=== PATIENT | male | born 2005 | race Caucasian/White ===

== ENCOUNTER 2025-05-22 13:42 | Emergency (ER) | payer BC, SELFPAY ==
[2025-05-22 13:44] VITALS: BP 143/68; PULSE 81; RESP 18; TEMP 36.6; O2SAT 100
--- NOTE | 2025-05-22 17:48 | ED.ANIMALBIT ---
HPI - Animal Bite General Chief Complaint: Animal Bite <TEJA Lipscomb Last Filed: 05/22/25 18:55> Stated Complaint: Dog bite left arm <TEJA Lipscomb Last Filed: 05/22/25 18:55> Time Seen by Provider: 05/22/25 17:02 <TEJA Lipscomb Last Filed: 05/22/25 18:55> Source: patient <TEJA Lipscomb Last Filed: 05/22/25 18:55> Mode of arrival: ambulatory <TEJA Lipscomb Last Filed: 05/22/25 18:55> Limitations: no limitations <TEJA Lipscomb Last Filed: 05/22/25 18:55> History of Present Illness HPI narrative: Patient is a 20-year-old male who presents the ED with report a dog bite to his left upper arm. Patient reports he was outside walking today around 1:30 p.m. when a dog walking on a leash attacked him and bit him in his L upper posterior arm. Sustained laceration to his left distal posterior upper arm. Reports there is a piece of material coming out from the laceration. Reports decreased sensation throughout the L dorsal forearm. Denies significant decreased ROM. Denies fevers. Tetanus is up-to-date. Believes the dog's vaccines are up-to-date. States it was not acting abnormally. <TEJA Lipscomb Last Filed: 05/22/25 18:55> Related Data Allergies/Adverse Reactions: Allergies Allergy/AdvReac Type Severity Reaction Status Date / Time No Known Allergies Allergy Verified 05/22/25 18:03 <TEJA Lipscomb Last Filed: 05/22/25 18:55> Review of Systems Review of Systems: All systems reviewed & are unremarkable except as noted in HPI. <TEJA Lipscomb Last Filed: 05/22/25 18:55> All systems reviewed & are unremarkable except as noted in HPI and below <TEJA Lipscomb Last Filed: 10/30/25 18:55> Exam Narrative: GENERAL: Well appearing, well-nourished, non-toxic, in no acute distress. HEAD: Normocephalic, atraumatic. RESPIRATORY: Airway patent, respirations nonlabored. CARDIOVASCULAR: Regular rate and rhythm without murmurs, rubs, or gallops. Radial pulses strong and intact. MUSCULOSKELETAL: 1 cm lateral laceration to left posterior upper arm, just proximal from elbow joint. No active bleeding. There is approximately 10 cm piece of thin/slightly shiny material hanging out from the laceration, TTP and increased bleeding with manipulation of this material. Focal surrounding TTP with bruising. Small abrasions to lateral posterior mid upper arm w/o active bleeding or laceration. Decreased sharp touch sensation over dorsal aspect of left forearm. Range of motion is intact throughout left fingers, wrist, elbow flexion/extension. SKIN: Warm, dry, normal color. NEURO: A&O X3. Speech clear. No ataxic movements. PSYCHIATRIC: Appropriate mood and affect. Normal interaction. <TEJA Lipscomb Last Filed: 05/22/25 18:55> Course EVENT MARKETING SPECIALIST/PA Physician Supervision i was there to see the pt , agreed with transfer <Tacho Ragsdale MD - Last Filed: 05/22/25 19:13> Vital Signs Vital signs: Vital Signs Temperature 36.6 C 05/22/25 13:44 Pulse Rate 81 05/22/25 13:44 Respiratory Rate 18 05/22/25 13:44 Blood Pressure 143/68 H 05/22/25 13:44 Pulse Oximetry 100 05/22/25 13:44 Oxygen Delivery Room Air 05/22/25 13:44 Temperature 36.6 C 05/22/25 13:44 Pulse Rate 81 05/22/25 13:44 Respiratory Rate 18 05/22/25 13:44 Blood Pressure 143/68 H 05/22/25 13:44 Pulse Oximetry 100 05/22/25 13:44 Oxygen Delivery Room Air 05/22/25 13:44 <Jojo Gibbons PA-C - Last Filed: 05/22/25 18:55> Vital Signs Temperature 36.6 C 05/22/25 13:44 Pulse Rate 81 05/22/25 13:44 Respiratory Rate 18 05/22/25 13:44 Blood Pressure 143/68 H 05/22/25 13:44 Pulse Oximetry 100 05/22/25 13:44 Oxygen Delivery Room Air 05/22/25 13:44 Temperature 36.6 C 05/22/25 13:44 Pulse Rate 81 05/22/25 13:44 Respiratory Rate 18 05/22/25 13:44 Blood Pressure 143/68 H 05/22/25 13:44 Pulse Oximetry 100 05/22/25 13:44 Oxygen Delivery Room Air 05/22/25 13:44 <Tacho Ragsdale MD - Last Filed: 05/22/25 19:13> MDM - Animal Bite MDM Narrative Medical decision making narrative: Patient presented to ED status post dog bite to left upper arm. Vital signs stable. Patient afebrile. Tetanus up-to-date. Dog was not acting abnormally. Low suspicion for rabies. Patient with approximately 10 cm piece of material coming from laceration, nerve versus tendon versus ligament. He does have preserved range of motion of left upper extremity, less suspicious for large tendon injury. He does report paresthesias throughout the dorsal active of his L forearm. Given concern for vascular injury, will discuss with tertiary center. We do not have plastics on-call today or vascular capabilities at this hospital. Discussed case with [facility] transfer Center, was sent to the ED. Discussed case with Dr. Lucio, EDP @ [facility], accepted patient for transfer. Patient and family are in agreement with plan and transfer. Patient started on Augmentin in the ED. Given dose of Quilcene for pain control. <Jojo Gibbons PA-C - Last Filed: 05/22/25 18:55> Medical Records Attestation: I reviewed the patient's medical records. <Jojo Gibbons PA-C - Last Filed: 05/22/25 18:55> Discharge Plan Discharge Clinical Impression: Dog bite of left upper arm, Paresthesia of left upper extremity <Jojo Gibbons PA-C - Last Filed: 05/22/25 18:55> Patient Disposition: Acute Care Hospital <TEJA Lipscomb Last Filed: 05/22/25 18:55> Condition: Stable <TEJA Lipscomb Last Filed: 05/22/25 18:55> Additional Instructions: GO STRAIGHT TO [facility] EM[facility]. DO NOT MAKE ANY STOPS. DO NOT EAT OR DRINK. <Jojo Gibbons PA-C - Last Filed: 05/22/25 18:55> Patient Language: Salvadorean <Jojo Gibbons PA-C - Last Filed: 05/22/25 18:55> Follow-up/Referrals: Lorena Aburto [Other] <Jojo Gibbons PA-C - Last Filed: 05/22/25 18:55> Time of Disposition: 18:25 <Jojo Gibbons PA-C - Last Filed: 05/22/25 18:55> 18:25 <Tacho Ragsdale MD - Last Filed: 05/22/25 19:13>
--- OUTSIDE RECORDS SUMMARY | 2025-05-22 17:49 | XMS_ITS | Clinical Summary ---
Author Organization [facility] Address [facility] [place] [address] Care Team Providers Care Chief Drafter Name Role Phone Dez Huerta NP, Ruthie Primary Care Provider [phone] Allergies No known active allergies Medications No known medications Active Problems No known active problems Social History Tobacco Use Types Packs/Day Years Used Date Smoking Tobacco: Never Smokeless Tobacco: Never Alcohol Use Standard Drinks/Week Comments No 0 (1 standard drink = 0.6 oz pur e alcohol) Sex and Gender Information Value Date Recorded Sex Assigned at Not on file Legal Sex Male 9:12 PM [employer] Gender Identity Not on file Sexual Orientation Not on file Last Filed Vital Signs Vital Sign Reading Time Taken Comments Blood Pressure 110/68 07/31/2018 8:09 PM [employer] Pulse 81 07/31/2018 8:09 PM [employer] Temperature 36.7 C (98.1 F) 07/31/2018 8:09 PM [employer] Respiratory Rate 15 07/31/2018 8:09 PM [employer] Oxygen Saturation 100% 07/31/2018 8:09 PM [employer] Inhaled Oxygen Concentration - - Weight 51.9 kg (114 lb 6.7 oz) 07/31/2018 8:09 P M [employer] Height 172.7 cm (5' 8) 07/31/2018 8:09 PM [employer] Body Mass Index 17.4 07/31/2018 8:09 PM [employer] Plan of Treatment Health Maintenance Due Date Last Done Comments Annual Physical 2007 HPV Vaccines (1 - Male 3-dos e series) 2019 Meningococcal B Vaccine (1 o f 2 - Standard) 2020 Hepatitis C 2022 DTaP, Tdap and Td Vaccines ( 1 - Tdap) 2023 Hepatitis B Vaccines (1 of 3 - 19+ 3-dose series) 2023 COVID-19 Vaccine (1 - 2024-2 6 season) 2025 Influenza Adult (#1) 2025 Hepatitis A Vaccines Aged Out No long er eligible based on patient's age to complete this topic Meningococcal Vaccine Aged Out No luzmaria saulo eligible based on patient's age to complete this topic Pneumococcal Vaccine: Pediat rics (0 to 5 Years) and At-Risk Patients (6 to 49 Years) Aged Out No longer eligible b ased on patient's age to complete this topic RSV Immunizations Under 20 Months Aged Out No longer eligible based on patient's age to complete this topic Insurance [facility] Care Teams Chief Drafter Relationship Specialty Start Date End Date Ruthie Garces NP [address] [place] [address] PCP - General PEDIATRICS 01/28/18
[2025-05-22] MEDS: HYDROcodone/acetaminophen (*CRX) 5-325 MG TABLET 1 TAB PO (18:03)
--- NOTE | 2025-05-22 18:16 | PC.NURSE ---
pt refused ambulance ride. pt parents at bedside will transport pt to nearest higher level of care facility
== END 2025-05-22 18:56 | disposition short-term general hospital (02) ==
PROVIDERS: Emergency Provider Physician Assistant
DX: S41.152A Open bite of left upper arm, initial encounter (principal); R20.2 Paresthesia of skin; W54.0XXA Bitten by dog, initial encounter
CPT/HCPCS: 99283; A9270